=== PATIENT | male | born 2000 | race Two or more races ===

== ENCOUNTER 2018-01-09 04:18 | Emergency (ER) | payer OTHER ==
--- NOTE | 2018-01-09 04:44 | EDPHY ---
H & P Stated Complaint: Laceration to forehead on roof surface. Time Seen by Provider: 01/09/18 04:28 HPI/ROS: HPI: The patient presents with scalp laceration which occurred about 3:30 a.m. This morning. He was going up a flight of stairs with a low ceiling and inadvertently banged his head on the ceiling. He did not lose consciousness though noticed that his head was bleeding. His friends shaved his scalp and saw that he had a laceration and brought him in. The patient has not had any vision changes, vomiting, behavioral change. He does have a mild headache at the location of the laceration. REVIEW OF SYSTEMS 10 systems were reviewed and negative with the exception of the elements mentioned in the history of present illness. PMHx: Healthy college student TRAUMA PHYSICAL General Appearance: Alert, no distress Head: Frontoparietal midline 4 cm scalp laceration which is not gaping and does not involve the galea with no active bleeding Eyes: Pupils equal, round, reactive ENT, Mouth: Blood from both nares, No hemotypanium, no oral trauma Neck: Non- tender, trachea midline Respiratory: Breathing comfortably Cardiovascular: Regular rate and rhythm Abdomen: Abdomen is soft and non-tender, pelvis stable Skin: No lacerations, No abrasion Back: No midline T/L/S pain Extremities: Non-tender, full range of motion Neurological: A&Ox3, GCS=15,normal motor function with 5/5 strength in all 4 extremities, normal sensory exam Source: Patient Exam Limitations: No limitations - Personal History Current Tetanus/Diphtheria Vaccine: Yes Current Tetanus Diphtheria and Acellular Pertussis (TDAP): Yes Tetanus Vaccine Date: 2013 - Medical/Surgical History Hx Asthma: No Hx Chronic Respiratory Disease: No Hx Diabetes: No Hx Cardiac Disease: No Hx Renal Disease: No Hx Cirrhosis: No Hx Alcoholism: No Hx HIV/AIDS: No Hx Splenectomy or Spleen Trauma: No Other PMH: Denies. - Social History Smoking Status: Unknown if ever smoked Constitutional: Initial Vital Signs Temperature (C) 36.7 C 01/09/18 04:20 Heart Rate 109 H 01/09/18 04:20 Respiratory Rate 16 01/09/18 04:20 Blood Pressure 140/93 H 01/09/18 04:20 O2 Sat (%) 93 01/09/18 04:20 O2 Delivery Mode Room Air Allergies/Adverse Reactions: No Known Allergies Allergy (Unverified 01/09/18 04:20) Home Medications: Medication Instructions Recorded NK [No Known Home Meds] 01/09/18 Medical Decision Making Procedures: LACERATION REPAIR Procedure: Laceration repair. Verbal consent was obtained from the patient. The linear 4 cm laceration on the scalp was anesthetized using lidocaine with epinephrine. The wound was scrubbed, draped and explored to its base with a gloved finger. There were no deep structures involved. No tendon injury was identified. . The wound was repaired with 6 antoinette. The wound repair was simple. The procedure was performed by myself. Differential Diagnosis: 17-year-old male presents after hitting his head on a low ceiling while walking up a flight of stairs, sustaining scalp laceration. I am not concerned for intracranial hemorrhage given no loss of consciousness, vomiting, behavioral change, normal neuro exam, vision change. Laceration repaired in the emergency department and patient discharged with his friends. Departure - Departure Disposition: Home, Routine, Self-Care Clinical Impression: Scalp laceration Qualifiers: Encounter type: initial encounter Qualified Code(s): S01.01XA - Laceration without foreign body of scalp, initial encounter Head injury Qualifiers: Encounter type: initial encounter Qualified Code(s): S09.90XA - Unspecified injury of head, initial encounter Condition: Good Instructions: Staple Care (ED) Additional Instructions: I recommend you return to the emergency room in 10 days on January 19 or go to [facility] to have the antoinette removed. Please return for any worsening headache, vomiting, vision changes. Referrals: [facility],. [Clinic] - As per Instructions
[2018-01-09 05:17] VITALS: BP 110/67
== END 2018-01-09 05:16 | disposition home or self-care (01) ==
PROC: 0HQ0XZZ Repair Scalp Skin, External Approach (ICD-10-PCS; principal; 2018-01-09)
DX: S01.01XA Laceration without foreign body of scalp, initial encounter (principal); W22.8XXA Striking against or struck by other objects, initial encounter; Y92.9 Unspecified place or not applicable; Y93.9 Activity, unspecified; Y99.9 Unspecified external cause status

== ENCOUNTER 2018-01-11 13:13 | Emergency (ER) | payer OTHER ==
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
[2018-01-11 16:30] VITALS: BP 126/70
== END 2018-01-11 16:30 | disposition home or self-care (01) ==
DX: S02.602A Fracture of unspecified part of body of left mandible, initial encounter for closed fracture (principal); S16.1XXA Strain of muscle, fascia and tendon at neck level, initial encounter